=== PATIENT | male | born 1970 | race Caucasian/White ===

== ENCOUNTER 2018-12-07 10:27 | Emergency (ER) | payer BC, OTHER ==
--- NOTE | 2018-12-07 11:16 | ERPHSYRPT ---
- History of Present Illness Source: patient Exam Limitations: no limitations Patient Subjective Stated Complaint: cut right thumb with a wood splitter Triage Nursing Assessment: Pt was splitting wood at home and pinched his finger between the log and the wedge and cut right thumb above the top knucle, 1.5 cm long, minimal bleeding, rates pain 04/15 Physician History: Pt is a 48 y/o male that presented to the ED secondary to laceration. Pt was splitting wood today, and he cut his R thumb with the wood splitter. He presented to the ED post event. He did wash his hands with soap and water and covered the thumb well. Timing/Duration: today Quality: painful Severity: moderate Location: hands (R thumb) Possible Causes: other (accident) Associated Symptoms: denies symptoms Allergies/Adverse Reactions: No Known Drug Allergies Allergy (Verified 12/07/18 10:39) Home Medications: Atorvastatin Calcium 20 mg PO DAILY 12/07/18 [History] Hx Tetanus, Diphtheria Vaccination/Date Given: No (12/2013) Hx Influenza Vaccination/Date Given: No - Review of Systems Constitutional: No Fever, No Chills Musculoskeletal: No Back Pain, No Neck Pain Skin: Other (Laceration of the R thumb) Neurological: No Dizziness, No Focal Weakness, No Sensory Changes - Past Medical History Pertinent Past Medical History: No - Past Surgical History Past Surgical History: Yes Other Surgical History: jaw surgery September 2008 - Social History Smoking Status: Former smoker Exposure to second hand smoke: No Drug Use: none Patient Lives Alone: No - Nursing Vital Signs Nursing Vital Signs: Initial Vital Signs Temperature 98.7 F 12/07/18 10:33 Pulse Rate 84 12/07/18 10:33 Blood Pressure 155/94 12/07/18 10:33 O2 Sat by Pulse Oximetry 97 12/07/18 10:33 Pain Scale Pain Intensity 7 - Physical Exam General Appearance: no apparent distress, alert Eye Exam: PERRL/EOMI, eyes nml inspection Ears, Nose, Throat Exam: normal ENT inspection, pharynx normal, moist mucous membranes Extremity Exam: normal inspection, normal range of motion Neurologic Exam: alert, oriented x 3, cooperative, normal mood/affect, sensation nml, No motor deficits Skin Exam: laceration (about 1.5cm around the thumb on the R from nail to mid circumferance) SpO2: 97 Procedures - Laceration/Wound Repair Right Upper Finger Wound Location: Right, hand Wound Length (cm): 1.5 (Thumb, from nail to mid circumference) Wound's Depth, Shape: superficial, flap Wound Explored: contaminated Irrigated: Yes Hibiclens Prep: Yes Anesthesia: local, 1% Lidocaine Volume Anesthetic (ccs): 2 Wound Debrided: minimal Wound Repaired With: sutures, Dermabond Suture Size/Type: 4-0, ethilon Number of Sutures: 3 Layer Closure?: No Sterile Dressing Applied?: Yes Splint Applied?: No - Course Nursing assessment & vital signs reviewed: Yes - Progress Progress: improved Progress Note: 12/07/18 11:17 Pt's thumb and laceration was cleaned with hibiclens. I used sterile technique and placed 3 sutures closing the laceration. Pt tolerated the procedure well. Dermabond was applied as the area was a flap. A sterile dressing and bactroban was applied. Pt had a tetanus vaccine in 2013. Augmentin was e-scribed for the pt for 7 days. Pt should keep the dressing dry and clean. He should use gloves when he is working. He should f/u with his PCP in 7-10 days to remove stitches. Will see patient in: office Counseled pt/family regarding: need for follow-up - Departure Time of Disposition: 11:21 Departure Disposition: Home Clinical Impression: Laceration of thumb without damage to nail Condition: Stable Critical Care Time: No Referrals: YOHANNES LEIJA MD [Primary Care Provider] - Additional Instructions: Finish Augmentin as ordered. Keep dressing dry and clean. F/U with PCP in 7- 10 days to remove the stitches. Prescriptions: Amoxicillin/Potassium Clav [Augmentin 875-125 Tablet] 1 each PO BID 7 Days #14 tablet
[2018-12-07 11:35] VITALS: BP 127/90; PULSE 72; O2SAT 99
== END 2018-12-07 11:32 | disposition home or self-care (01) ==
LOC: ED 10:27
DX: S61.011A Laceration without foreign body of right thumb without damage to nail, initial encounter (principal); W31.2XXA Contact with powered woodworking and forming machines, initial encounter; Y92.89 Other specified places as the place of occurrence of the external cause
CPT/HCPCS: 12001; 99283